=== PATIENT | male | born 1980 ===

== ENCOUNTER 2021-05-04 12:37 | Emergency (ER) | payer OTHER ==
[~2021-05-04] VITALS: Ht 185.4 cm; Wt 86.4 kg
[2021-05-04 13:39] VITALS: BP 135/79
== END 2021-05-04 19:38 | disposition left against medical advice (07) ==
LOC: ER 12:38
DX: S51.811A Laceration without foreign body of right forearm, initial encounter (principal); X58.XXXA Exposure to other specified factors, initial encounter; Y93.89 Activity, other specified; Y92.89 Other specified places as the place of occurrence of the external cause; Y99.8 Other external cause status